=== PATIENT | female | born 1965 | race Caucasian/White ===

== ENCOUNTER 2016-07-22 07:17 | Day surgery (SDC) | payer BC ==
[2016-07-22] MEDS ORDERED: LIDOCAINE HCL 1% MPF SOL ONE (08:28)
[2016-07-22] MEDS ORDERED: PROPOFOL 500 MG/50 ML EMU IV ONE (08:28)
[2016-07-22 09:24] VITALS: BP 135/60; PULSE 60; RESP 18; TEMP 97.4; O2SAT 95
== END 2016-07-22 09:45 | disposition home or self-care (01) ==
LOC: SURG 07:17
PROVIDERS: ATTEND Surgery
DX: Z12.11 Encounter for screening for malignant neoplasm of colon (principal)
CPT/HCPCS: 45378; J2001 ×2; J2704 ×2